=== PATIENT | male | born 1960 | race Caucasian/White ===

== ENCOUNTER 2020-04-07 10:40 | Emergency (ER) | payer SELFPAY ==
[2020-04-07 11:12] VITALS: BP 110/80; PULSE 98; RESP 18; TEMP 36.7; O2SAT 96; BMI 33.0
[2020-04-07 12:51] VITALS: BP 95/85; PULSE 93; RESP 15; O2SAT 98
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
--- NOTE | 2020-04-07 12:53 | XRR_ITS ---
PROCEDURE INFORMATION: Exam: XR Chest, 1 View Exam date and time: 04/07/2020 12:54 PM Age: 59 years old Clinical indication: Cough and dyspnea; Additional info: Dyspnea/cough TECHNIQUE: Imaging protocol: XR of the chest Views: 1 view. COMPARISON: No relevant prior studies available. FINDINGS: Lungs: Unremarkable. No consolidation. Pleural space: Unremarkable. No pleural effusion. No pneumothorax. Heart/Mediastinum: Unremarkable. No cardiomegaly. Bones/joints: No acute findings. XR/XR chest 1V portable [id number] IMPRESSION: No acute findings.
[2020-04-07 13:30] LABS: Basophils # 0.1 10^3/uL (0.0-0.1); Basophils % 0.8 %; Eosinophils # 0.6 10^3/uL (0.0-0.8); Hematocrit 41.7 % (42.0-52.0); Hemoglobin 13.2 g/dL (11.7-16.6); Lymphocytes # 2.1 10^3/uL (0.8-4.8); Lymphocytes % 31.8 %; Mean Corpuscular HGB Conc 31.7 g/dL (30.0-36.0); Mean Corpuscular Hemoglobin 24.9 pg (28.0-34.0); Mean Corpuscular Volume 78.5 fL (80-94); Mean Platelet Volume 10.7 fL (7.4-10.4); Monocytes # 0.6 10^3/uL (0.2-0.9); Monocytes % 9.3 %; Neutrophils # 3.26 10^3/uL (1.8-7.7); Neutrophils % 48.9 %; Nucleated Red Blood Cells % 0 %; Platelet Count 198 10^3/cmm (130-400); Red Blood Count 5.31 10^6/uL (4.1-5.3); Red Cell Distribution Width 13.2 % (12.1-15.1); White Blood Count 6.7 10^3/uL (4.0-10.0)
--- NOTE | 2020-04-07 13:32 | US_ITS ---
WS: [id number] INDICATION: Left groin TECHNIQUE: Ultrasound soft tissue left groin FINDINGS: Ultrasound soft tissue left groin. Multiple enlarged left inguinal lymph nodes the largest measuring approximately 3.6 x 1.7 x 3.2 cm. Additional smaller enlarged lymph nodes measuring 2.7 x 0 .9 x 1.7 CCM. Preserved fatty hilum. Recommend correlation for cellulitis or infection. This can be f urther evaluated with ultrasound-guided biopsy. US/US soft tissue/extremity [id number] IMPRESSION: Multiple enlarged lymph nodes left groin the largest measuring 3.6 x 1.7 x 3.2 CM. Recommend correlation for soft tissue infection or cellulitis. Lymph nodes can be further evaluated with ultrasound-guided biopsy
[2020-04-07 13:34] LABS: Anion Gap 13.1 (5-19); Blood Urea Nitrogen 23 mg/dL (6-20); Carbon Dioxide 25 mmol/L (22-29); Chloride 106 mmol/L (98-107); Glomerular Filtration Rate 62.4 mL/min (90-130); Glucose 117 mg/dL (65-115); Osmolality Calculated 288 mOsm/kg (285-295); Potassium 4.1 mmol/L (3.5-5.1); Sodium 140 mmol/L (136-145)
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
[2020-04-07 13:55] LABS: Add Urine Microscopic? NO
[2020-04-07 14:07] LABS: Bilirubin Urine Neg (NEGATIVE); Blood Urine Neg (Negative); Glucose Urine UA Norm (Normal); Ketones Urine Negative (Negative); Leukocyte Esterase Urine Negative (Negative); Nitrate Urine Negative (Negative); Protein Urine Neg (Negative); Urine Appearance Clear (CLEAR); Urine Color Yellow (Yellow); Urobilinogen Urine 1 mg/dL (Negative); pH Urine 5 (5-7)
[2020-04-07 15:26] VITALS: BP 121/77; PULSE 65; RESP 15; O2SAT 98
--- NOTE | 2020-04-08 10:26 | DCPLANNER ---
sr. manager marketing had message to speak with patient about getting established with a primary care physician. sr. manager marketing spoke with patient, he stated that he does not have insurance at this time. sr. manager marketing offered to send patient both of the financial coordinator applications for the hospital to fill out and turn in to see if he qualifies for financial coordinator for [facility]. Patient stated that he wanted to wait to see if he qualifies for the financial coordinator before scheduling an appointment.
== END 2020-04-07 15:25 | disposition home or self-care (01) ==
PROVIDERS: Family Medicine; Emergency Provider Nurse Practitioner Family
DX: L04.9 Acute lymphadenitis, unspecified (principal); M54.9 Dorsalgia, unspecified; V89.2XXA Person injured in unspecified motor-vehicle accident, traffic, initial encounter
CPT/HCPCS: 12345; 71045; 73030; 76882; 80048; 81003; 85025; 99283

== ENCOUNTER 2021-01-04 10:19 | Emergency (ER) | payer OTHER, SELFPAY ==
[2021-01-04 10:33] VITALS: BP 124/81; PULSE 70; RESP 18; TEMP 36.6; O2SAT 98; BMI 31.9
--- NOTE | 2021-01-04 10:40 | XR_ITS ---
WS: [id number] LEFT HAND: 3 VIEW(S) TECHNIQUE: PA, oblique and lateral. HISTORY: injury to left hand-5th and 4th digit. COMPARISON: None available. No acute fracture or dislocation. Soft tissue injury involving the distal fourth and fifth fingers. No definite bone abnormality. There is a lucency through the terminal tuft of the fifth finger which could be normal trabecular pattern. No displacement. XR/XR hand LT min 3V* [id number] IMPRESSION: Soft tissue injury distal fourth and fifth fingers. No fracture identified.
[2021-01-04 10:53] VITALS: BP 125/94; PULSE 63; RESP 18; O2SAT 98
--- NOTE | 2021-01-04 11:01 | ED_ITS ---
HPI - Extremity Problem General: Chief complaint: Extremity Injury, Upper Stated complaint: L. 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 Patient had a crush type squeezing injury to the fifth and fourth fingers dorsally along the nailbeds. Avulsing the nails. Minimal injury to surrounding skin. No significant lacerations that need any repair. Patient does have difficulty making a fist especially with the fourth digit does not want to bend at the PIP joint. Will obtain x-rays and provide patient with tetanus shot. MD Complaint: extremity pain and extremity swelling Onset (ago): minute(s) Pain Consistency: constant Location: left and upper extremity (Fourth and fifth fingers along the nailbed.) Quality: crushing Radiation: none Associated symptoms: Deny chest pain, fever(s) or rash Review of Systems General: Reports: 10 or more systems reviewed and unremarkable except in HPI and below Const: Denies: fever(s), chills, body aches or fatigue Eyes: Denies: change in vision or blurry vision ENMT: Denies: throat pain, hoarseness or mouth pain Card: Denies: chest pain, palpitations, irregular heart rhythm, edema, swelling of feet/ankles or lightheadedness Resp: Denies: dyspnea, productive cough, non-productive cough, wheezing or pain on inspiration GI: Denies: abdominal pain, nausea or vomiting : Denies: flank pain, dysuria, urinary frequency, urinary urgency or urinary hesitancy Musc: Reports: extremity pain, joint pain and joint swelling; Denies: neck pain, back pain, extremity swelling, joint redness, joint warmth or limited range of motion Skin/Breast: Denies: rash, pruritus, erythema or skin tenderness Neuro: Denies: headache(s), numbness in extremities or weakness in extremities Psych: Denies: anxiety or depression Physical Exam Const: COMMON NORMALS: no acute distress, average body habitus, patient oriented x3, no limitations, healthy appearing, alert and well nourished HENMT: COMMON NORMALS: normocephalic, atraumatic, hearing grossly normal bilaterally, external ears normal, EAC's normal, TM's normal bilaterally, Normal external nose present, Normal nasal mucous membranes and turbinates present, moist oral mucous membranes, oropharynx normal, dentition normal and gingiva normal HEAD & SCALP: normocephalic and atraumatic NOSE: Normal external nose present and Normal nasal mucous membranes and turbinates present EXTERNAL EAR: Yes external ears normal EXTERNAL AUDITORY CANAL: EAC's normal TYMPANIC MEMBRANE: TM's normal bilaterally Neck/C-Spine: COMMON NORMALS: full ROM, no lymphadenopathy, supple, no meningeal signs, no JVD, Thyroid normal and No carotid bruits THYROID: Thyroid normal Chest: COMMONS NORMALS: normal inspection of the chest, normal palpation of entire chest wall, normal inspection of the breasts and normal palpation of the breasts Breast/axilla inspection: Yes normal inspection of the breasts BREAST/AXILLA PALPATION: Yes normal palpation of the breasts Resp: COMMON NORMALS: normal respiratory effort, No retractions, No use of accessory muscles, clear to auscultation bilaterally and percussion normal AUSCULTATION: clear to auscultation bilaterally PERCUSSION: percussion normal Cardio: COMMON NORMALS: no JVD, regular rate, regular rhythm, S1 normal heart sound present, S2 normal heart sound present, No gallops present (Cardio), No clicks present (Cardio), No murmurs present (Cardio), No rub (Cardio) and Peripheral pulses 2+ throughout RATE: regular rate RHYTHM: regular rhythm HEART SOUNDS: S1 normal heart sound present and S2 normal heart sound present PERIPHERAL PULSES: Peripheral pulses 2+ throughout GI: COMMON NORMALS: Normal to inspection, nondistended, normoactive bowel sounds present, Soft to palpation, non-tender, No hepatosplenomegaly present, no masses and no bruits PALPATION: Yes Soft to palpation and Yes No hepatosplenomegaly present : COMMON NORMALS: Yes no CVA tenderness BLADDER/KIDNEY EXAM: Yes no CVA tenderness Back/Pelvis: COMMON NORMALS: no CVA tenderness, thoracic and lumbar spine normal to inspection, no thoracic nor lumbar tenderness, thoraco-lumbar ROM normal and straight leg raise negative bilaterally Extremity: COMMON NORMALS: full ROM, capillary refill normal, no joint enlargement, no clubbing, cyanosis or edema, no calf tenderness and no pedal edema LEFT UPPER EXTREMITY: Yes hand & digits Left hand and digits: Yes inspection (Appears to have a crush type avulsion type injury to the nailbeds ) OTHER: Appears to have a crush type avulsion type injury to the nailbeds of the fourth and fifth digits of the left hand. No significant bleeding no significant lacerations. Did a pulse scan and nailbeds fingernails and a crushing type injury. Patient able to flex fingers other than the fourth fingers PIP joint does not bend symmetrically with the other fingers may be due to swelling. Patient appears to have a bupivacaine block prior to arrival and seen by me. Nursing staff to do local wound care. Neuro: COMMON NORMALS: patient oriented x3 SENSORIUM/ORIENTATION: Yes alert MENINGEAL SIGNS: Yes no meningeal signs Course Consultations: Consultation #1: I have contacted [facility] orthopedics hand specialist. I am awaiting a return call. We have clouded the x-rays to [facility] further evaluation. We will discuss physical exam with hand specialist. Time: 11:11 Consultation #2: I have discussed at length with Dr. Esteban orthopedic hand surgeon at [facility]. She did review x-rays. We discussed the case. She request the patient's fingers we wrapped in Xeroform gauze and tube gauze soft dressings. Discharge patient home with pain medication and antibiotics. Patient will be seen in her office in [address] Esteban's office number is [phone]. 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 Patient had a crush type squeezing injury to the fifth and fourth fingers dorsally along the nailbeds. Avulsing the nails. Minimal injury to surrounding skin. No significant lacerations that need any repair. Patient does have difficulty making a fist especially with the fourth digit does not want to bend at the PIP joint. Will obtain x-rays and provide patient with tetanus shot. I have discussed at length with Dr. Esteban orthopedic hand surgeon at [facility]. She did review x-rays. We discussed the case. She request the patient's fingers we wrapped in Xeroform gauze and tube gauze soft dressings. Discharge patient home with pain medication and antibiotics. Patient will be seen in her office in [address] Esteban's office number is [phone]. Imaging Data^: Xray Ortho: Attestation: I personally reviewed and interpreted this imaging study as follows: Radiologist's impression: IMPRESSION: Soft tissue injury distal fourth and fifth fingers. No fracture identified. Discharge Plan Discharge Patient Disposition: Home Clinical Impression: Injury of hand, left, Crush injury of hand Condition: Stable Prescriptions: New doxycycline hyclate 100 mg capsule 100 mg PO BID 7 Days Qty: 14 RF: 0 hydrocodone-acetaminophen 5-325 mg tablet 1 tab PO Q6H PRN (Reason: pain) Qty: 7 RF: 0 diclofenac sodium 75 mg tablet,delayed release (DR/EC) 75 mg PO BID PRN (Reason: pain) Qty: 20 RF: 0 No Action Rafi's PM Back Pain Relief 580-25 mg Tablet 1 - 2 tab PO PRN RF: 0 Discharge Orders: Discharge ED (Routine); Ordered 01/04/21 Ordered By: Jalil Barahona Discharge Diet: Advance as tolerated Discharge Activity: Increase activity as tolerated Patient Instructions: Opioid Safety Activity Restrictions/Additional Instructions: Discharge patient home with pain medication and antibiotics. Patient will be seen in Dr. Esteban's office office in [address] Esteban's office number is [phone]. Take all medications as instructed. Maintain rest ice and elevation of the hand at the level of the heart or greater. Coding Level of Care Code ED Sales Professional Bilingual for [employer] Fwd Exam Comprehensive
[2021-01-04] MEDS: tetanus-dipt-pertussis 0.5 mL SDV IM (11:09)
--- NOTE | 2021-01-04 11:10 | PC.NURSE ---
Soaking left hand in Betadine/Sterile saline solution.
[2021-01-04] MEDS: neomycin-poly-bacitracin oint 0.9 gm Pkt 1 APPLIC TOPICAL (11:45)
[2021-01-04 11:57] VITALS: BP 121/86; PULSE 63; RESP 16; O2SAT 98
== END 2021-01-04 11:59 | disposition home or self-care (01) ==
PROVIDERS: Emergency Provider Emergency Medicine
DX: S67.22XA Crushing injury of left hand, initial encounter (principal); W31.89XA Contact with other specified machinery, initial encounter; Z23 Encounter for immunization
CPT/HCPCS: 73130; 90471; 90715; 99283; 99291

== ENCOUNTER 2021-01-27 08:01 | Outpatient (CLI) | payer OTHER, SELFPAY | END 2021-01-27 08:02 | disposition home or self-care (01) | LOC: WOUND 08:02 | PROVIDERS: Visit Provider Thoracic Surgery (Cardiothoracic Vascular Surgery) | DX: L98.492 Non-pressure chronic ulcer of skin of other sites with fat layer exposed (principal) | CPT/HCPCS: 97597; G0463 ==

== ENCOUNTER 2021-02-03 08:36 | Outpatient (CLI) | payer OTHER, SELFPAY | END 2021-02-03 08:37 | disposition home or self-care (01) | LOC: WOUND 08:37 | PROVIDERS: Visit Provider Nurse Practitioner Family | DX: S69.82XA Other specified injuries of left wrist, hand and finger(s), initial encounter (principal); Y99.0 Civilian activity done for income or pay; X58.XXXA Exposure to other specified factors, initial encounter | CPT/HCPCS: G0463 ==

== ENCOUNTER 2021-02-17 08:42 | Outpatient (CLI) | payer OTHER, SELFPAY | END 2021-02-17 08:43 | disposition home or self-care (01) | LOC: WOUND 08:43 | PROVIDERS: Visit Provider Thoracic Surgery (Cardiothoracic Vascular Surgery) | DX: Z09 Encounter for follow-up examination after completed treatment for conditions other than malignant neoplasm (principal) | CPT/HCPCS: 99212 ==

== ENCOUNTER 2021-03-16 10:34 | Outpatient (RCR) | payer OTHER, SELFPAY | END 2021-03-30 23:59 | disposition home or self-care (01) | LOC: SOT 10:34 | PROVIDERS: PCP Orthopaedic Surgery; Visit Provider Orthopaedic Surgery | DX: S67.22XD Crushing injury of left hand, subsequent encounter (principal); X58.XXXD Exposure to other specified factors, subsequent encounter | CPT/HCPCS: 97110; 97112; 97167; 97530 ==

== ENCOUNTER 2021-03-31 16:12 | Outpatient (RCR) | payer OTHER, SELFPAY | END 2021-04-29 23:59 | disposition home or self-care (01) | LOC: SOT 16:12 | PROVIDERS: PCP Orthopaedic Surgery; Visit Provider Orthopaedic Surgery | DX: S67.22XD Crushing injury of left hand, subsequent encounter (principal); Z98.890 Other specified postprocedural states | CPT/HCPCS: 97110; 97168 ==

== ENCOUNTER 2021-04-30 06:00 | Outpatient (RCR) | payer OTHER, SELFPAY | END 2021-05-30 23:59 | disposition home or self-care (01) | LOC: SOT 06:00 | PROVIDERS: Visit Provider Orthopaedic Surgery | DX: S67.22XD Crushing injury of left hand, subsequent encounter (principal); X58.XXXD Exposure to other specified factors, subsequent encounter; Z47.89 Encounter for other orthopedic aftercare | CPT/HCPCS: 97110; 97112 ==

== ENCOUNTER 2021-05-31 06:00 | Outpatient (RCR) | payer OTHER, SELFPAY | END 2021-06-29 23:59 | disposition home or self-care (01) | LOC: SOT 06:00 | PROVIDERS: Visit Provider Orthopaedic Surgery | DX: S67.22XD Crushing injury of left hand, subsequent encounter (principal); Z98.890 Other specified postprocedural states | CPT/HCPCS: 97022; 97110; 97140 ==

== ENCOUNTER 2021-06-28 02:39 | Emergency (ER) | payer OTHER, SELFPAY ==
[2021-06-28 02:40] VITALS: BP 141/96; PULSE 64; RESP 18; TEMP 36.4; O2SAT 96; BMI 31.9
--- NOTE | 2021-06-28 02:47 | ECG_ITS ---
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
--- NOTE | 2021-06-28 02:47 | XRR_ITS ---
PROCEDURE INFORMATION: Exam: XR Chest Exam date and time: 06/28/2021 2:47 AM Age: 60 years old Clinical indication: Chest wall pain; Additional info: Cp TECHNIQUE: Imaging protocol: XR of the chest. Views: 1 view. COMPARISON: CR XR chest 1V portable [id number] 04/07/2020 1:53 PM FINDINGS: Lungs: Still unremarkable. No consolidation. Pleural spaces: Still no pneumothorax or apparent pleural fluid. Heart/Mediastinum: Still no cardiomegaly. Bones/joints: Unremarkable. XR/XR chest 1V portable [id number] IMPRESSION: No acute findings or interval change. Radiation Dose CTDIVOL = (mGy): DLP = (mGy-cm)
--- NOTE | 2021-06-28 02:56 | ED_ITS ---
HPI - Chest Pain General: Chief Complaint: Chest Pain Stated Complaint: Chest pains Time Seen by Provider: 06/28/21 02:42 History of Present Illness: HPI narrative: 60-year-old male with no prior history of coronary disease or heart problems. He states chest pain radiating to his shoulders, particularly his left woke him up around 2 AM. He says he has had a cough for 24 to 48 hours. No sputum production and no fever. Pain was really centered over the bottom of his chest in his epigastric area. No vomiting. Mild shortness of breath. MD complaint: chest pain Onset (ago): minute(s) Timing of current episode: constant Prior episodes: No Onset: awoke with symptoms Pain location: substernal and epigastric Pain radiation: left shoulder and right shoulder Severity: moderate Quality: aching Relieving factors: nothing Exacerbating factors: nothing Context: other Associated symptoms: Reports abdominal pain, dyspnea and nausea; Deny diaphoresis, fever(s), leg edema, palpitations or vomiting Treatment prior to arrival: none Review of Systems Const: Denies: fever(s) or diaphoresis Card: Reports: chest pain; Denies: palpitations Resp: Reports: dyspnea and non-productive cough GI: Reports: abdominal pain and nausea; Denies: vomiting Physical Exam HENMT: COMMON NORMALS: normocephalic HEAD & SCALP: normocephalic Eye: COMMON NORMALS: Equal, round and reactive pupils present and EOMs intact bilaterally PUPIL: Yes Equal, round and reactive pupils present Chest: COMMONS NORMALS: normal inspection of the chest CHEST: No tenderness Resp: COMMON NORMALS: normal respiratory effort, No use of accessory muscles and clear to auscultation bilaterally AUSCULTATION: clear to auscultation natalie aterally Cardio: COMMON NORMALS: regular rate and regular rhythm RATE: regular rate RHYTHM: regular rhythm GI: COMMON NORMALS: Normal to inspection, nondistended, normoactive bowel sounds present and Soft to palpation PALPATION: Yes Soft to palpation and Yes Tenderness to palpation present (GI) (epigastric) Neuro: BRITTANY COMA SCALE: document GCS findings Brittany coma scale eye opening: Spontaneous [place] coma scale verbal response: Orientated [place] coma scale motor response: Obey commands [place] coma scale total score: 15 Course Vital Signs: Vital signs: Vital Signs Temperature 97.6 F 06/28/21 02:40 Pulse Rate 62 06/28/21 04:36 Respiratory Rate 16 06/28/21 04:36 Blood Pressure 139/89 06/28/21 04:36 Pulse Oximetry 95 06/28/21 04:36 MDM - Chest Pain MDM Narrative: Medical decision making narrative: 60-year-old male with chest pain. CBC is normal. BUN is 24, otherwise CMP is normal. Initial EKG sinus rhythm with normal axis and normal intervals. There is no ST change. Rate of 60. First troponin was normal at 11. 2-hour troponin did not change. Chest x- ray is normal. His D-dimer is nondetectable. Pain improved after GI cocktail and morphine. He will be allowed home. Lab Data: Labs: Lab Results 06/28/21 06/28/21 06/28/21 02:55 02:55 02:55 WBC 5.6 10^3/uL 10^3/ uL (4.0-10.0) RBC 5.56 10^6/uL H 10 ^6/uL (4.1-5.3) Hgb 14.2 g/dL g/dL (11.7-16.6) Hct 44.9 % % (42.0-52.0) MCV 80.8 fl fl (80-94) MCH 25.5 pg L pg (28.0-34.0) MCHC 31.6 g/dL g/dL (30.0-36.0) RDW 12.9 % % (12.1-15.1) Plt Count 218 10^3/cmm 10^3 /cmm (130-400) MPV 10.9 fL H fL (7.4-10.4) Neut % (Auto) 43.7 % % Lymph % (Auto) 41.4 % % [place] % (Auto) 7.6 % % Eos % (Auto) 6.2 % % Baso % (Auto) 0.9 % % Neut # (Auto) 2.46 10^3/uL 10^3 /uL (1.8-7.7) Lymph # (Auto) 2.3 10^3/uL 10^3/ uL (0.8-4.8) [place] # (Auto) 0.4 10^3/uL 10^3/ uL (0.2-0.9) Eos # (Auto) 0.4 10^3/uL 10^3/ uL (0.0-0.8) Baso # (Auto) 0.1 10^3/uL 10^3/ uL (0.0-0.1) Nucleated RBC % (a uto) 0 % % Nucleated RBCs # 0.0 /100WBC /100W BC D-Dimer <= 0.27 ug/mIFEU ug/mIFEU (0-0.59) Sodium 141 mmol/L mmol/L (136-145) Potassium 4.3 mmol/L mmol/L (3.5-5.1) Chloride 105 mmol/L mmol/L (98-107) Carbon Dioxide 26 mmol/L mmol/L (22-29) Anion Gap 14.3 (5-19) BUN 24 mg/dL H mg/dL (6-20) Creatinine 1.2 mg/dL mg/dL (0.7-1.2) GFR Calculation 62.2 mL/min L mL/ min (90-130) Glucose 106 mg/dL mg/dL (65-115) Calculated Osmolal ity 296 mOsm/kg H mOs m/kg (285-295) Calcium 9.1 mg/dL mg/dL (8.5-10.5) Total Bilirubin 0.2 mg/dL mg/dL (0.15-1.2) AST 26 U/L U/L (0-40) ALT 31 U/L U/L (0-41) Alkaline Phosphata se 90 IU/L IU/L (40-130) Troponin T Baselin e Troponin T 120 Min osage Delta Troponin T NT-Pro-B Natriuret Pep 15 pg/mL pg/mL (0-125) Total Protein 6.9 g/dL g/dL (6.6-8.7) Albumin 4.5 g/dL g/dL (3.5-5.2) Globulin 2.4 g/dL g/dL (1.3-4.6) 06/28/21 06/28/21 02:55 04:56 WBC RBC Hgb Hct MCV MCH MCHC RDW Plt Count MPV Neut % (Auto) Lymph % (Auto) [place] % (Auto) Eos % (Auto) Baso % (Auto) Neut # (Auto) Lymph # (Auto) [place] # (Auto) Eos # (Auto) Baso # (Auto) Nucleated RBC % (a uto) Nucleated RBCs # D-Dimer Sodium Potassium Chloride Carbon Dioxide Anion Gap BUN Creatinine GFR Calculation Glucose Calculated Osmolal ity Calcium Total Bilirubin AST ALT Alkaline Phosphata se Troponin T Baselin e 11 ng/L ng/L (0-15) Troponin T 120 Min osage 11.26 ng/L ng/L (0-15) Delta Troponin T 0.26 ABS# ABS# (0-10) NT-Pro-B Natriuret Pep Total Protein Albumin Globulin Discharge Plan Discharge Patient Disposition: Home Clinical Impression: Chest pain Qualifiers: Chest pain type: unspecified Qualified Code(s): R07.9 - Chest pain, unspecified Condition: Stable Prescriptions: No Action No Known Home Medications RF: 0 Discharge Orders: Discharge ED (Routine); Ordered 06/28/21 Ordered By: Carlos Ford Discharge Diet: Advance as tolerated Discharge Activity: Resume usual activity Patient Instructions: Chest Pain (ED) Activity Restrictions/Additional Instructions: Return for return of or worsening chest pain, shortness of breath, fever greater than 100, cough or sputum production, any other concerning symptoms. Coding Level of Care Code ED Sterile Processing Manager for Chg Fwd Exam Detailed
[2021-06-28] MEDS: ondansetron 2 mg/ML SDV 2 mL 4 MG IVP (03:04)
[2021-06-28] MEDS: morphine 4 mg/mL SDV 1 mL IVP (03:04)
[2021-06-28] MEDS: aspirin 325 mg Tablet PO (03:07)
[2021-06-28] MEDS: lidocaine 2% viscous 15 ML, aluminum-mag hydrox-simethicon 30 ML, sucralfate oral liq 1 GM PO (03:07)
[2021-06-28 03:14] LABS: Basophils # 0.1 10^3/uL (0.0-0.1); Basophils % 0.9 %; Eosinophils # 0.4 10^3/uL (0.0-0.8); Eosinophils % 6.2 %; Hematocrit 44.9 % (42.0-52.0); Hemoglobin 14.2 g/dL (11.7-16.6); Lymphocytes # 2.3 10^3/uL (0.8-4.8); Lymphocytes % 41.4 %; Mean Corpuscular HGB Conc 31.6 g/dL (30.0-36.0); Mean Corpuscular Hemoglobin 25.5 pg (28.0-34.0); Mean Corpuscular Volume 80.8 fl (80-94); Mean Platelet Volume 10.9 fL (7.4-10.4); Monocytes # 0.4 10^3/uL (0.2-0.9); Monocytes % 7.6 %; Neutrophils # 2.46 10^3/uL (1.8-7.7); Neutrophils % 43.7 %; Nucleated Red Blood Cells % 0 %; Platelet Count 218 10^3/cmm (130-400); Red Blood Count 5.56 10^6/uL (4.1-5.3); Red Cell Distribution Width 12.9 % (12.1-15.1); White Blood Count 5.6 10^3/uL (4.0-10.0)
[2021-06-28 03:43] LABS: D Dimer <= 0.27 ug/mIFEU (0-0.59)
[2021-06-28 03:53] LABS: Troponin(5th) Baseline 11 ng/L (0-15)
[2021-06-28 04:01] LABS: Alanine Aminotransferase 31 U/L (0-41); Albumin Level 4.5 g/dL (3.5-5.2); Alkaline Phosphatase 90 IU/L (40-130); Anion Gap 14.3 (5-19); Aspartate Amino Transferase 26 U/L (0-40); Blood Urea Nitrogen 24 mg/dL (6-20); Calcium 9.1 mg/dL (8.5-10.5); Carbon Dioxide 26 mmol/L (22-29); Chloride 105 mmol/L (98-107); Globulin 2.4 g/dL (1.3-4.6); Glomerular Filtration Rate 62.2 mL/min (90-130); Glucose 106 mg/dL (65-115); NT Pro B Type Natriuretic Pept 15 pg/mL (0-125); Osmolality Calculated 296 mOsm/kg (285-295); Potassium 4.3 mmol/L (3.5-5.1); Sodium 141 mmol/L (136-145); Total Bilirubin 0.2 mg/dL (0.15-1.2); Total Protein 6.9 g/dL (6.6-8.7)
[2021-06-28 04:36] VITALS: BP 139/89; PULSE 62; RESP 16; O2SAT 95
--- NOTE | 2021-06-28 04:47 | ECG_ITS ---
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
[2021-06-28 05:45] LABS: Troponin 5 2HR 11.26 ng/L (0-15); Troponin 5 2HR Delta 0.26 ABS# (0-10)
[2021-06-28 07:00] VITALS: BP 135/98; PULSE 57; RESP 16; O2SAT 97
== END 2021-06-28 07:02 | disposition home or self-care (01) ==
PROVIDERS: Emergency Provider Emergency Medicine
DX: R07.9 Chest pain, unspecified (principal)
CPT/HCPCS: 71045; 80053; 83880; 84484; 85025; 85378; 93005; 96374; 96375; 99283; J2270; J2405

== ENCOUNTER 2021-06-30 06:00 | Outpatient (RCR) | payer OTHER, SELFPAY | END 2021-07-30 23:59 | disposition home or self-care (01) | LOC: SOT 06:00 | PROVIDERS: Visit Provider Orthopaedic Surgery | DX: S67.22XA Crushing injury of left hand, initial encounter (principal); Z98.890 Other specified postprocedural states; X58.XXXA Exposure to other specified factors, initial encounter | CPT/HCPCS: 97022; 97110; 97140; 97168; 97530 ==

== ENCOUNTER 2021-12-10 19:20 | Emergency (ER) | payer SELFPAY ==
[2021-12-10 19:30] VITALS: BP 144/95; PULSE 79; RESP 18; O2SAT 98; BMI 31.9
--- NOTE | 2021-12-10 19:46 | XRR_ITS ---
PROCEDURE INFORMATION: Exam: XR Chest Exam date and time: 12/10/2021 7:54 PM Age: 61 years old Clinical indication: Cough TECHNIQUE: Imaging protocol: XR of the chest. Views: 1 view. COMPARISON: CR XR chest 1V portable [id number] 06/28/2021 2:59 AM FINDINGS: Lungs: No consolidation. Pleural spaces: No pleural effusion. No pneumothorax. Heart/Mediastinum: No cardiomegaly. Bones/joints: Unremarkable. XR/XR chest 1V portable [id number] IMPRESSION: No acute abnormality demonstrated.
[2021-12-10 20:03] VITALS: BP 127/86; PULSE 73; RESP 18; O2SAT 98
--- NOTE | 2021-12-10 20:13 | W.ED.GENADLT ---
HPI - General Adult General: Chief complaint: General Medical Stated complaint: jaw pain, ear pain Time Seen by Provider: 12/10/21 19:36 Source: patient History of Present Illness: 61-year-old gentleman presents with complaint of left-sided jaw pain. He states that he has some swollen lymph nodes. He has had a sore throat, with cough productive of white sputum. No fever. He has also had a tender molar on that left side. He denies significant scalp lesion, etc. No unexplained weight loss. Onset (ago): day(s) Location: mouth and neck Radiation: non-radiation Quality: stabbing and aching Pain Consistency: constant Relieving factors: cold therapy Exacerbating factors: none Associated symptoms: Reports cough; Deny chest pain, confusion, dyspnea, fevers/chills, headache(s), nausea, short of breath or vomiting Review of Systems Const: Denies: change in sleep pattern ENMT: Reports: throat pain and odynophagia; Denies: uvular edema, swelling of lips/tongue or oral sores Card: Denies: chest pain Resp: Denies: dyspnea, productive cough or non-productive cough GI: Denies: nausea or vomiting Musc: Reports: neck pain Neuro: Denies: headache(s) or confusion Physical Exam Const: GENERAL APPEARANCE: cooperative HENMT: COMMON NORMALS: normocephalic, atraumatic and Normal external nose present HEAD & SCALP: normocephalic and atraumatic FACE & SINUS: normal facial exam NOSE: Normal external nose present and Normal nares present MOUTH: Normal oral and palatal mucosa present and tongue normal TEETH & GINGIVA: Yes gingiva abnormal (Mild swelling left posterior mandible), Yes poor dentition and Yes teeth discoloration THROAT: posterior oropharynx normal; no peritonsillar mass and no uvular edema Eye: COMMON NORMALS: Equal, round and reactive pupils present and EOMs intact bilaterally PUPIL: Yes Equal, round and reactive pupils present Neck/C-Spine: GENERAL: No anterior neck swelling and Yes lymphadenopathy Lymphadenopathy location: submandibular, anterior cervical, posterior cervical and supraclavicular mobile and tender Chest: CHEST: Yes Symmetrical chest wall rise Resp: COMMON NORMALS: normal respiratory effort, No use of accessory muscles and clear to auscultation bilaterally AUSCULTATION: clear to auscultation bilaterally Cardio: COMMON NORMALS: regular rate and regular rhythm RATE: regular rate RHYTHM: regular rhythm GI: COMMON NORMALS: Normal to inspection, nondistended, normoactive bowel sounds present Neuro: NEHEMIAH COMA SCALE: document GCS findings [place]hemiah coma scale eye opening: Spontaneous [place] coma scale verbal response: Orientated [place] coma scale motor response: Obey commands [place]hem[place] coma scale total score: 15 Skin: COMMON NORMALS: no rashes or lesions noted GENERAL SKIN EXAM: no rashes or lesions noted Course Vital Signs: Vital signs: Vital Signs Pulse Rate 79 12/10/21 19:30 Respiratory Rate 18 12/10/21 19:30 Blood Pressure 144/95 12/10/21 19:30 Pulse Oximetry 98 12/10/21 19:30 MDM - General Adult Medical Decision Making 61-year-old gentleman with shotty lymphadenopathy to the left side of his anterior neck. He has poor dentition, with some gingival swelling. He also has had a cough productive of some white sputum. No fever. Vitals are normal chest x-ray is negative. He will be discharged on antibiotics to follow-up with his PCP. Discharge Plan Discharge Patient Disposition: Home Clinical Impression: Acute lymphadenitis Condition: Stable Prescriptions: New amoxicillin-pot clavulanate 875-125 mg tablet 1 tab PO BID Qty: 20 0RF ketorolac 10 mg tablet 10 mg PO TID PRN (Reason: pain) Qty: 10 0RF Discharge Orders: Discharge ED (Routine); Ordered 12/10/21 Ordered By: Carlos Ford Discharge Diet: Advance as tolerated Discharge Activity: Increase activity as tolerated Patient Instructions: Lymphadenitis Activity Restrictions/Additional Instructions: Return for fever greater than 100 despite 2-3 doses of antibiotics, worsening swelling or pain despite treatment, trouble breathing, any other concerning symptoms. You should have your lymph nodes rechecked by your doctor in 2 weeks time to ensure they are returning to normal sized Coding Level of Care Code ED Supervisor Forming And Tempering for Geetag Fwd Exam Comprehensive
[2021-12-10 20:33] VITALS: BP 124/94; PULSE 67; RESP 18; O2SAT 96
[2021-12-10] MEDS: amoxicillin-clav 875-125 mg Tablet 1 TAB PO (20:57)
[2021-12-10] MEDS: ketorolac 10 mg Tablet PO (20:57)
[2021-12-10 21:10] VITALS: BP 155/97; PULSE 81; RESP 16; O2SAT 98
== END 2021-12-10 21:09 | disposition home or self-care (01) ==
PROVIDERS: Emergency Provider Emergency Medicine
DX: L04.9 Acute lymphadenitis, unspecified (principal)
CPT/HCPCS: 71045; 99283

== ENCOUNTER 2023-03-11 14:02 | Outpatient (CLI) | payer SELFPAY ==
[2023-03-11 15:06] LABS: Hepatitis A Antibody IgM Non-Reactive (Nonreactive); Hepatitis B Core IgM Non-Reactive (Nonreactive); Hepatitis B Surface Antigen Non-Reactive (Nonreactive); Hepatitis C Virus Antibody Non-Reactive (Nonreactive)
== END 2023-03-11 14:03 | disposition home or self-care (01) ==
LOC: LAB 14:03
PROVIDERS: Visit Provider Emergency Medicine
DX: R19.7 Diarrhea, unspecified (principal)
CPT/HCPCS: 80074

== ENCOUNTER → 2023-03-12 12:30 | Outpatient (BNVA) | payer SELFPAY | PROVIDERS: Visit Provider Emergency Medicine | DX: R19.7 Diarrhea, unspecified (principal) | CPT/HCPCS: 87506 ==

== ENCOUNTER 2025-04-10 10:03 | Emergency (ER) | payer SELFPAY ==
[2025-04-10 10:07] VITALS: BP 164/86; PULSE 83; RESP 18; TEMP 36.7; O2SAT 97; BMI 33.0
--- NOTE | 2025-04-10 10:08 | XRR_ITS ---
PROCEDURE INFORMATION: Exam: XR Chest Exam date and time: 04/10/2025 10:47 AM Age: 64 years old Clinical indication: Pain; Chest pressure; Additional info: Chest pain TECHNIQUE: Imaging protocol: Radiologic exam of the chest. Views: 1 view. COMPARISON: CR XR chest 1V portable [id number] 12/10/2021 7:54 PM FINDINGS: Lungs: Unremarkable. No consolidation. Pleural spaces: Unremarkable. No pleural effusion. No pneumothorax. Heart/Mediastinum: Unremarkable. No cardiomegaly. Bones/joints: Unremarkable. XR/XR chest 1V portable [id number] IMPRESSION: No acute findings.
--- NOTE | 2025-04-10 10:09 | ECG_ITS ---
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
--- OUTSIDE RECORDS SUMMARY | 2025-04-10 10:11 | XMS_ITS | Clinical Summary ---
Author Organization [facility] Address [address] [place] [address] Phone Care Team Providers Care Judicial Assistant Name Role Phone Unavailable Primary Care Provider Unavailabl e Allergies Active Allergy Reactions Criticality Noted Date Comments Iodine Other (See Comments) 01/05/2021 Pt fiance is allergic and would prefer an alternative Medications No known medications Active Problems No known active problems Social History Tobacco Use Types Packs/Day Years Used Date Smoking Tobacco: Former Cigarettes Q uit: 12/30/1991 Smokeless Tobacco: Never Alcohol Use Standard Drinks/Week Comments Not Currently 0 (1 standard drink = 0.6 oz pur e alcohol) Sex and Gender Information Value Date Recorded Sex Assigned at Not on file Legal Sex Male 11:34 AM CDT Gender Identity Not on file Sexual Orientation Not on file Last Filed Vital Signs Vital Sign Reading Time Taken Comments Blood Pressure 118/93 12/27/2021 8:15 PM CDT Pulse 79 12/27/2021 8:15 PM CDT Temperature 36.6 C (97.9 F) 12/27/2021 7:55 PM CDT Respiratory Rate 18 12/27/2021 8:15 PM CDT Oxygen Saturation 97% 12/27/2021 8:15 PM CDT Inhaled Oxygen Concentration - - Weight 95.2 kg (209 lb 12.8 oz) 12/27/2021 7:55 PM CDT Height 177.8 cm (5' 10 ) 12/27/2021 7:55 PM CDT Body Mass Index 30.1 12/27/2021 7:55 PM CDT Plan of Treatment Health Maintenance Due Date Last Done Comments DTAP/TDAP/TD VACCINES (1 - Tdap) 1981 COLORECTAL SCREENING 2007 Colorectal Cancer Screening 2007 FIT-DNA Q 3 years 2007 FIT/FOBT Q 1 year 2007 Flex Sig/CT Colonography Q 5 years 2007 ZOSTER VACCINE (1 of 2) 2012 INFLUENZA VACCINE (#1) 2025 RSV VACCINE (60+ or ) (1 - 1-dose 75+ series) [address] [place] [id number]
--- OUTSIDE RECORDS SUMMARY | 2025-04-10 10:11 | XMS_ITS | Clinical Summary ---
Author Organization [facility] Address [address] [place] [address] Phone Care Team Providers Care Top Dyeing Machine Tender Name Role Phone Unavailable Primary Care Provider Unavailabl e Allergies Active Allergy Reactions Criticality Noted Date Comments Iodine Other (See Comments) 01/05/2021 Pt fiance is allergic and would prefer an alternative Medications diclofenac sodium (VOLTAREN) 75 mg Tablet, Delayed Release (E.C.) Take 75 mg by mouth 2 times daily. Active doxycycline hyclate (VIBRAMYCIN) 100 mg capsule Take 100 mg by mouth 2 times daily. Active HYDROcodone-marshal taminophen (NORCO) 5-325 mg tabletIndicatio ns:Degloving injury of left upper extremity, initial encounter Take 1 Tablet by mouth every 4 hours as needed for Pain, Severe. Max Daily Amount: 6 Tablets 30 Tablet 01/06/2021 Active Active Problems No known active problems Social History Tobacco Use Types Packs/Day Years Used Date Smoking Tobacco: Former Cigarettes 1 20 0 12/30/1971 - 12/30/1991 Smokeless Tobacco: Never Alcohol Use Standard Drinks/Week Comments Not Currently 0 (1 standard drink = 0.6 oz pur e alcohol) Sex and Gender Information Value Date Recorded Sex Assigned at Not on file Legal Sex Male 11:34 AM CDT Gender Identity Not on file Sexual Orientation Not on file Last Filed Vital Signs Vital Sign Reading Time Taken Comments Blood Pressure 122/78 01/06/2021 1:45 PM CDT Pulse 58 01/06/2021 1:45 PM CDT Temperature 36 C (96.8 F) 01/06/2021 1:19 PM CDT Respiratory Rate 16 01/06/2021 1:45 PM CDT Oxygen Saturation 100% 01/06/2021 1:45 PM CDT Inhaled Oxygen Concentration - - Weight 94.8 kg (209 lb) 01/21/2021 7:59 AM CDT Height 172.7 cm (5' 8 ) 01/21/2021 7:59 AM CDT Body Mass Index 31.78 01/21/2021 7:59 AM CDT Plan of Treatment Health Maintenance Due [...]
--- NOTE | 2025-04-10 10:14 | ED_ITS ---
HPI - Chest Pain 2 General: Chief Complaint: Chest Pain Stated Complaint: CP SOB pain in L arm Time Seen by Provider: 04/10/25 10:08 History of Present Illness: 64-year-old male presents emergency room complaining of chest pain and shortness of breath. Stated complaints his left arm he tells me it was his right arm. He was walking around the shop when this began initially began as epigastric discomfort then moved up into his chest and then into his right bicep and arm. He had some shortness of breath with it he is not having any significant discomfort at this time no known history of coronary artery disease patient is not diabetic does not smoke Associated symptoms: Deny abdominal pain, dyspnea or fever(s) Related Data Previous Rx's ?Medication ?Instructions ?Recorded aspirin 81 mg tablet,delayed 81 mg PO DAILY #30 tabs 0 04/10/25 release Allergies Allergy/AdvReac Type Severity Reaction Status Date / Time No Known Allergies Allergy Verified 03/11/23 13:26 Review of Systems 2 Const: Denies: fever(s) or chills Card: Denies: chest pain Resp: Denies: dyspnea GI: Denies: abdominal pain : Denies: dysuria, urinary frequency or urinary urgency Musc: Denies: neck pain or back pain Skin/Breast: Denies: rash Physical Exam 2 Const: GENERAL APPEARANCE: cooperative ORIENTATION/CONSCIOUSNESS: Yes awake, Yes oriented to person, Yes oriented to place and Yes oriented to time HENMT: COMMON NORMALS: normocephalic, atraumatic and hearing grossly normal bilaterally HEAD & SCALP: normocephalic and atraumatic Resp: COMMON NORMALS: normal respiratory effort, No retractions, No use of accessory muscles and clear to auscultation bilaterally AUSCULTATION: clear to auscultation bilaterally Cardio: COMMON NORMALS: regular rate, regular rhythm and No murmurs present (Cardio) RATE: regular rate RHYTHM: regular rhythm GI: COMMON NORMALS: Soft to palpation and No hepatosplenomegaly present A USCULTATION: Yes normoactive bowel sounds PALPATION: Yes Soft to palpation, No Tenderness to palpation present (GI), No Guarding due to palpation present (GI) and Yes No hepatosplenomegaly present Extremity: COMMON NORMALS: normal to inspection, capillary refill normal, no clubbing, cyanosis or edema, no calf tenderness and no pedal edema Neuro: SENSORIUM/ORIENTATION: Yes oriented to person, Yes oriented to place and Yes oriented to time Skin: COMMON NORMALS: no rashes or lesions noted GENERAL SKIN EXAM: no rashes or lesions noted Course 2 Vital Signs: Vital signs: Vital Signs Temperature 98.1 F 04/10/25 10:07 Pulse Rate 60 04/10/25 14:16 Respiratory Rate 16 04/10/25 14:16 Blood Pressure 103/79 04/10/25 14:16 Pulse Oximetry 99 04/10/25 14:16 Oxygen Delivery Me thod Room Air 04/10/25 13:00 MDM - Chest Pain Medical Decision Making EKG was normal cardiac enzymes unremarkable. Patient has had no further symptoms. Will discharge patient home aspirin daily. Schedule outpatient Lexiscan sestamibi stress test. Medical Records I reviewed the patient's medical records. Lab Data I reviewed the patient's lab results. 04/10/25 10:16 04/10/25 10:16 Radiology Impressions Chest X-Ray 04/10/25 10:08 IMPRESSION: No acute findings. Laboratory Results WBC 4.80 10^3/uL (3.29-11.43) 04/10/25 10:16 RBC 5.16 10^6/uL (3.85-5.65) 04/10/25 10:16 Hgb 13.70 g/dL (11.27-16.99) 04/10/25 10:16 Hct 41.3 % (37-53) 04/10/25 10:16 MCV 80.0 fl (82-101) L 04/10/25 10:16 MCH 26.6 pg (27-33) L 04/10/25 10:16 MCHC 33.2 g/dL (30-55) 04/10/25 10:16 RDW 13.2 % (12.1-15.1) 04/10/25 10:16 Plt Count 207 10^3/cmm (157-399) 04/10/25 10:16 MPV 10.2 fL (7.4-10.4) 04/10/25 10:16 Neut % (Auto) 45.9 % 04/10/25 10:16 Lymph % (Auto) 38.5 % 04/10/25 10:16 [place] % (Auto) 7.9 % 04/10/25 10:16 Eos % (Auto) 6.7 % 04/10/25 10:16 Baso % (Auto) 0.8 % 04/10/25 10:16 Neut # (Auto) 2.20 10^3/uL (1.8-7.7) 04/10/25 10:16 Lymph # (Auto) 1.9 10^3/uL (0.8-4.8) 04/10/25 10:16 [place] # (Auto) 0.4 10^3/uL (0.2-0.9) 04/10/25 10:16 Eos # (Auto) 0.3 10^3/uL (0.0-0.8) 04/10/25 10:16 Baso # (Auto) 0.0 10^3/uL (0.0-0.1) 04/10/25 10:16 Nucleated RBC % (auto) 0 % 04/10/25 10:16 Nucleated RBCs # 0.0 /100WBC 04/10/25 10:16 Sodium 141 mmol/L (136-145) 04/10/25 10:16 Potassium 4.2 mmol/L (3.5-5.1) 04/10/25 10:16 Chloride 107 mmol/L (98-107) 04/10/25 10:16 Carbon Dioxide 26 mmol/L (22-29) 04/10/25 10:16 Anion Gap 12.2 (5-19) 04/10/25 10:16 BUN 24 mg/dL (8-23) H 04/10/25 10:16 Creatinine 1.2 mg/dL (0.7-1.2) 04/10/25 10:16 GFR Calculation 61.3 mL/min (90-130) L 04/10/25 10:16 Glucose 125 mg/dL (65-115) H 04/10/25 10:16 Calculated Osmolality 298 mOsm/kg (285-295) H 04/10/25 10:16 Calcium 8.8 mg/dL (8.5-10.5) 04/10/25 10:16 Total Bilirubin 0.2 mg/dL (0.15-1.2) 04/10/25 10:16 AST 22 U/L (0-40) 04/10/25 10:16 ALT 28 U/L (0-41) 04/10/25 10:16 Alkaline Phosphatase 102 U/L (40-130) 04/10/25 10:16 Troponin T Baseline 11 ng/L (0-15) 04/10/25 10:16 Troponin T 120 Minute 11.26 ng/L (0-15) 04/10/25 12:09 Delta Troponin T 0.26 ABS# (0-10) 04/10/25 12:09 Total Protein 6.7 g/dL (6.6-8.7) 04/10/25 10:16 Albumin 4.3 g/dL (3.5-5.2) 04/10/25 10:16 Globulin 2.4 g/dL (1.3-4.6) 04/10/25 10:16 All radiology interpretation(s) finalized by discharge EKG Data EKG 1: Interpretation: EKG 911 2025-05-08 sinus rhythm rate of 74 [place] interval 157 QTc [address] elevation no depression no T wave inversion compared to EKG 06/28/2021 no significant change Discharge Plan Discharge Patient Disposition: Home Clinical Impression: Atypical chest pain Condition: Stable Prescriptions: New aspirin 81 mg tablet,delayed release (DR/EC) 81 mg PO DAILY Qty: 30 0RF Discharge Orders: Discharge ED (Routine); Ordered 04/10/25 Ordered By: Ashu Small Discharge Diet: Usual diet Discharge Activity: Resume usual activity Patient Instructions: Opioid Safety, Pain Management, Patient Portal & De Instructions Activity Restrictions/Additional Instructions: Thank you for choosing [facility] for your healthcare needs today. It is very important that you follow up as instructed or that you return to the Emergency Department should you have concerns or if your condition changes or worsens in any way. Emergency department visits are focused on emergent conditions, in some cases you may require further evaluation on an outpatient basis. You were seen in the emergency room for an episode of chest discomfort extending into your right arm. Your cardiac enzymes and EKG did not show any acute changes. Recommend that you take a baby aspirin daily and will have you set up for an outpatient stress test. If you have recurrence or persistence of symptoms return to the emergency room (Please note that included in your discharge packet is information concerning opioid safety and pain management. This information is given to all patients were discharged from the ER regardless of their discharge diagnosis or the medicines they usually take or are prescribed.) Print Language: Hebrew Coding Level of Care Code ED Behavioral Health Aide for Geetag Kristyn
[2025-04-10 10:29] LABS: Hematocrit 41.3 % (37-53); Hemoglobin 13.70 g/dL (11.27-16.99); Mean Corpuscular HGB Conc 33.2 g/dL (30-55); Mean Corpuscular Hemoglobin 26.6 pg (27-33); Mean Corpuscular Volume 80.0 fl (82-101); Nucleated Red Blood Cells % 0 %; Platelet Count 207 10^3/cmm (157-399); Red Blood Count 5.16 10^6/uL (3.85-5.65); White Blood Count 4.80 10^3/uL (3.29-11.43)
[2025-04-10 10:52] VITALS: PULSE 77; RESP 16; O2SAT 98
[2025-04-10 10:54] LABS: Alanine Aminotransferase 28 U/L (0-41); Albumin Level 4.3 g/dL (3.5-5.2); Alkaline Phosphatase 102 U/L (40-130); Anion Gap 12.2 (5-19); Aspartate Amino Transferase 22 U/L (0-40); Blood Urea Nitrogen 24 mg/dL (8-23); Calcium 8.8 mg/dL (8.5-10.5); Carbon Dioxide 26 mmol/L (22-29); Chloride 107 mmol/L (98-107); Creatinine Clr Calc Pharmacy 72.5942; Globulin 2.4 g/dL (1.3-4.6); Glucose 125 mg/dL (65-115); Osmolality Calculated 298 mOsm/kg (285-295); Potassium 4.2 mmol/L (3.5-5.1); Sodium 141 mmol/L (136-145); Total Protein 6.7 g/dL (6.6-8.7)
[2025-04-10 10:59] LABS: Troponin(5th) Baseline 11 ng/L (0-15)
[2025-04-10 11:58] VITALS: BP 110/77; PULSE 70; RESP 13; O2SAT 98
[2025-04-10 12:18] VITALS: BP 109/81; PULSE 66; RESP 16; O2SAT 97
[2025-04-10 13:00] VITALS: BP 112/81; PULSE 67; RESP 16; O2SAT 98
[2025-04-10 13:17] LABS: Troponin 5 2HR 11.26 ng/L (0-15); Troponin 5 2HR Delta 0.26 ABS# (0-10)
[2025-04-10 14:16] VITALS: BP 103/79; PULSE 60; RESP 16; O2SAT 99
--- NOTE | 2025-04-10 16:07 | DCPLANNER ---
faxed outpatient jay order to scheduling
== END 2025-04-10 14:06 | disposition home or self-care (01) ==
PROVIDERS: Emergency Provider Family Medicine
DX: R07.89 Other chest pain (principal)
CPT/HCPCS: 36415; 71045; 80053; 84484; 85025; 93005; 99285; J9999